=== PATIENT | male | born 1945 | race Two or more races ===

== ENCOUNTER 2020-11-09 20:20 | Inpatient (IN) | payer OTHER, MEDICAID ==
[~2020-11-09] VITALS: Ht 165.1 cm; Wt 59.4 kg
[2020-11-09] MEDS ORDERED: VANCOMYCIN 1GM/250ML 250 ML IV ONE (22:45)
[2020-11-09] MEDS ORDERED: PIPERACILLIN-TAZOB 3.375GM 100 ML IV ONE (22:45)
[2020-11-10 00:26] LABS: Basophils # (auto) 0.1 10 ^3/uL (0-0.2); Basophils % (auto) 0.9 % (0.0-2.0); Eosinophils # (auto) 0.1 10 ^3/uL (0-0.8); Eosinophils % (auto) 1.3 % (0.0-7.0); Hematocrit 33.7 % (41.0-53.0); Hemoglobin 11.5 g/dL (13.5-17.5); Lymphocytes % (auto) 18.1 % (10.0-50.0); Mean Corpuscular Hgb Conc. 34.1 g/dL (32.0-36.0); Mean Corpuscular Volume 84.9 fL (80.0-100.0); Monocytes # (auto) 0.9 10 ^3/uL (0-1.3); Neutrophils # (auto) 8.1 10 ^3/uL (1.6-8.6); Neutrophils % (auto) 71.7 % (37.0-80.0); Platelet Count (auto) 408 10^3/uL (140-450); Red Blood Cells 3.97 10^6/uL (4.5-5.90); Red Cell Distribution Width 13.2 % (11.8-14.3); White Blood Cell 11.3 10^3/uL (4.4-10.8)
[2020-11-10 00:47] LABS: Alanine Aminotransferase 23 U/L (16-61); Albumin 2.7 g/dL (3.4-5.0); Anion Gap 10 (5-15); Aspartate Aminotransferase 12 U/L (15-37); BUN/Creatinine Ratio 24.6; Blood Urea Nitrogen 15 mg/dL (7-18); Calcium 8.9 mg/dL (8.5-10.1); Carbon Dioxide 25 mmol/L (21-32); Chloride 97 mmol/L (98-107); GFR African American 166 mL/min; GFR Non-African American 137 mL/min; Glucose 174 mg/dL (74-106); Potassium 3.8 mmol/L (3.5-5.1); Sodium 132 mmol/L (136-145)
[2020-11-10 00:52] LABS: Alkaline Phosphatase 122 U/L (45-117); Bilirubin, Total 0.2 mg/dL (0.2-1.0); Total Protein 6.7 g/dL (6.4-8.2)
[2020-11-10 00:57] LABS: INR 0.98 (0.9-1.15); Partial Thromboplastin Time 28.5 sec (23.0-31.2)
[2020-11-10] MEDS ORDERED: MORPHINE SULF INJ 2 MG/ML SYRINGE 1ML IV PRN (02:15)
[2020-11-10] MEDS ORDERED: ONDANSETRON HCL 4 MG/2 ML VIAL IV PRN (02:15)
[2020-11-10] MEDS ORDERED: ACETAMINOPHEN 325 MG TAB PO PRN (02:15)
[2020-11-10] MEDS ORDERED: HYDROcodone-ACET 5/325MG TAB PO PRN (02:15)
[2020-11-10] MEDS ORDERED: DOCUSATE SOD 100 MG CAP PO PRN (02:15)
[2020-11-10] MEDS ORDERED: DEXTROSE (50%) 50ML SYRG IV PRN (02:15)
[2020-11-10] MEDS ORDERED: SODIUM CHLORIDE 0.9% 1,000 ML IV SCH (02:15)
[2020-11-10] MEDS ORDERED: NITROGLYCERIN 0.4 MG SL TAB SL PRN (02:15)
[2020-11-10] MEDS: hydrALAZINE HCL 20 MG/ML VL IV PRN ×2 (04:53→15:05)
[2020-11-10] MEDS ORDERED: LORazepam 2MG/ML-1ML VIAL IV ONE (06:00)
[2020-11-10] MEDS: PIPERACILLIN-TAZOB 3.375GM 100 ML IV SCH ×3 (06:00→21:52)
[2020-11-10 07:24] LABS: Basophils # (auto) 0.1 10 ^3/uL (0-0.2); Basophils % (auto) 0.9 % (0.0-2.0); Eosinophils # (auto) 0.1 10 ^3/uL (0-0.8); Eosinophils % (auto) 1.1 % (0.0-7.0); Hematocrit 35.2 % (41.0-53.0); Hemoglobin 12.1 g/dL (13.5-17.5); Lymphocytes # (auto) 2.3 10 ^3/uL (0.4-5.4); Lymphocytes % (auto) 19.7 % (10.0-50.0); Mean Corpuscular Hemoglobin 29.2 pg (28.0-32.0); Mean Corpuscular Hgb Conc. 34.5 g/dL (32.0-36.0); Mean Corpuscular Volume 84.7 fL (80.0-100.0); Monocytes # (auto) 1.2 10 ^3/uL (0-1.3); Neutrophils % (auto) 68.3 % (37.0-80.0); Platelet Count (auto) 444 10^3/uL (140-450); Red Blood Cells 4.15 10^6/uL (4.5-5.90); Red Cell Distribution Width 13.1 % (11.8-14.3); White Blood Cell 11.7 10^3/uL (4.4-10.8)
[2020-11-10 07:42] LABS: Albumin 2.9 g/dL (3.4-5.0); Potassium 3.7 mmol/L (3.5-5.1)
[2020-11-10 07:44] LABS: BUN/Creatinine Ratio 19.3
[2020-11-10] MEDS: ACCU-CHEK COMFORT CURVE STRIP VI SCH ×4 (07:55→21:53)
[2020-11-10] MEDS: InsuLIN REG 1unit/0.01ml Soln (100units/ml) SC SCH ×4 (08:00→20:53)
[2020-11-10 09:27] LABS: Bilirubin, Total 0.5 mg/dL (0.2-1.0); Total Protein 7.4 g/dL (6.4-8.2)
[2020-11-10] MEDS ORDERED: LORazepam 2MG/ML-1ML VIAL ONE (09:53)
[2020-11-10] MEDS: ASCORBIC ACID 500 MG TAB PO SCH ×2 (10:00→21:29)
[2020-11-10] MEDS ORDERED: LORazepam 2MG/ML-1ML VIAL IV PRN (10:00)
[2020-11-10] MEDS: MULTIPLE VITAMIN TAB PO SCH (10:00)
[2020-11-10] MEDS ORDERED: ENOXAPARIN SOD 40 MG/0.4 ML SYRINGE SC SCH (10:00)
[2020-11-10] MEDS: FAMOTIDINE (10MG/ML) 2ML VL IV SCH ×2 (10:24→21:52)
[2020-11-10 10:34] LABS: Urine Bacteria NONE SEEN /hpf (None Seen); Urine Blood Negative /uL (Negative); Urine Hyaline Cast FEW /lpf (0 - 2); Urine Specific Gravity 1.019 (1.001-1.035); Urine WBC 1 /hpf (0 - 3)
[2020-11-10 10:40] LABS: Lactic Acid w/Reflex 2.6 mmol/L (0.4-2.0)
[2020-11-10] MEDS: METOPROLOL TARTRATE 50 MG TAB PO SCH ×2 (11:08→21:29)
[2020-11-10] MEDS: amLODIPine BESYLATE 5 MG TAB PO SCH (11:09)
[2020-11-10] MEDS: SODIUM CHLORIDE 0.9% 1,000 ML IV SCH (14:54)
[2020-11-10] MEDS ORDERED: METOPROLOL TARTRATE 1MG/1ML-5ML VIAL IV PRN (16:00)
[2020-11-10] MEDS ORDERED: ACETAMINOPHEN 650 MG RECT SUPP PR ONE (17:15)
[2020-11-10 17:17] LABS: Amphetamine Screen, Urine NEGATIVE (NEGATIVE); Barbiturate Scree,Urine NEGATIVE (NEGATIVE); Benzodiazephine Screen, Urine NEGATIVE (NEGATIVE); Cannabinoid Screen, Urine NEGATIVE (NEGATIVE); Cocaine Screen, Urine NEGATIVE (NEGATIVE); Opiate Scree,Urine NEGATIVE (NEGATIVE); Phencyclidine Screen, Urine NEGATIVE (NEGATIVE)
[2020-11-10 20:05] VITALS: BP 149/84
[2020-11-10] MEDS: ATORVASTATIN 20 MG TAB PO SCH (21:28)
[2020-11-10 22:00] VITALS: BP 149/84
[2020-11-10] MEDS ORDERED: ENOXAPARIN SOD 30 MG/0.3 ML SYRINGE SC SCH (22:00)
[2020-11-10] MEDS ORDERED: METO25TA5 PO (23:25)
[2020-11-10] MEDS ORDERED: LISI2.5T47 PO (23:25)
[2020-11-10] MEDS ORDERED: METF-370 PO (23:25)
[2020-11-10] MEDS ORDERED: GABA-339 PO (23:25)
[2020-11-10] MEDS ORDERED: CLOT-6 EX (23:25)
[2020-11-10] MEDS ORDERED: INSLANTI SC (23:25)
[2020-11-10] MEDS ORDERED: PIO30T PO (23:25)
[2020-11-11 05:00] VITALS: BP 143/78
[2020-11-11] MEDS: PIPERACILLIN-TAZOB 3.375GM 100 ML IV SCH ×3 (05:52→22:06)
[2020-11-11] MEDS: ACCU-CHEK COMFORT CURVE STRIP VI SCH ×4 (05:53→22:08)
[2020-11-11] MEDS: InsuLIN REG 1unit/0.01ml Soln (100units/ml) SC SCH ×4 (05:54→22:00)
[2020-11-11 06:55] LABS: Basophils # (auto) 0.1 10 ^3/uL (0-0.2); Basophils % (auto) 1.1 % (0.0-2.0); Eosinophils # (auto) 0.1 10 ^3/uL (0-0.8); Eosinophils % (auto) 1.3 % (0.0-7.0); Hematocrit 34.5 % (41.0-53.0); Hemoglobin 11.7 g/dL (13.5-17.5); Lymphocytes # (auto) 1.9 10 ^3/uL (0.4-5.4); Lymphocytes % (auto) 16.2 % (10.0-50.0); Mean Corpuscular Hemoglobin 28.9 pg (28.0-32.0); Mean Corpuscular Volume 84.9 fL (80.0-100.0); Monocytes # (auto) 0.9 10 ^3/uL (0-1.3); Monocytes % (auto) 7.7 % (0.0-12.0); Neutrophils # (auto) 8.5 10 ^3/uL (1.6-8.6); Neutrophils % (auto) 73.7 % (37.0-80.0); Platelet Count (auto) 439 10^3/uL (140-450); Red Blood Cells 4.06 10^6/uL (4.5-5.90); Red Cell Distribution Width 13.3 % (11.8-14.3); White Blood Cell 11.5 10^3/uL (4.4-10.8)
[2020-11-11 08:18] LABS: Magnesium 1.6 mg/dL (1.6-2.6); Potassium 3.8 mmol/L (3.5-5.1)
[2020-11-11 08:25] LABS: Albumin 2.8 g/dL (3.4-5.0); BUN/Creatinine Ratio 18.9; Bilirubin, Total 0.5 mg/dL (0.2-1.0); Calcium 9.2 mg/dL (8.5-10.1); Total Protein 7.2 g/dL (6.4-8.2)
[2020-11-11 09:00] VITALS: BP 156/71
[2020-11-11] MEDS: SODIUM CHLORIDE 0.9% 1,000 ML IV SCH (10:20)
[2020-11-11] MEDS ORDERED: MAGNESIUM SULFATE 1GM/100ML 100 ML IV ONE (11:00)
[2020-11-11] MEDS: FAMOTIDINE (10MG/ML) 2ML VL IV SCH ×2 (11:30→22:06)
[2020-11-11] MEDS: amLODIPine BESYLATE 5 MG TAB PO SCH (11:31)
[2020-11-11] MEDS: MULTIPLE VITAMIN TAB PO SCH (11:31)
[2020-11-11] MEDS: METOPROLOL TARTRATE 50 MG TAB PO SCH ×2 (11:31→22:07)
[2020-11-11] MEDS: CLOPIDOGREL BISULFATE 75 MG TAB PO SCH (11:32)
[2020-11-11] MEDS: ASCORBIC ACID 500 MG TAB PO SCH ×2 (11:32→22:07)
[2020-11-11 13:00] VITALS: BP 159/77
[2020-11-11 17:22] VITALS: BP 144/80
[2020-11-11] MEDS ORDERED: LORazepam 2MG/ML-1ML VIAL IV PRN (19:15)
[2020-11-11 22:00] VITALS: BP 125/62
[2020-11-11] MEDS: ATORVASTATIN 20 MG TAB PO SCH (22:07)
[2020-11-11] MEDS: ENOXAPARIN SOD 60 MG/0.6 ML SYRINGE SC SCH (22:08)
[2020-11-12 05:00] VITALS: BP 150/71
[2020-11-12] MEDS: SODIUM CHLORIDE 0.9% 1,000 ML IV SCH (05:00)
[2020-11-12] MEDS: PIPERACILLIN-TAZOB 3.375GM 100 ML IV SCH ×3 (06:22→22:45)
[2020-11-12] MEDS: ACCU-CHEK COMFORT CURVE STRIP VI SCH ×4 (06:22→22:45)
[2020-11-12] MEDS: InsuLIN REG 1unit/0.01ml Soln (100units/ml) SC SCH ×4 (06:31→22:00)
[2020-11-12 07:01] LABS: Hematocrit 33.7 % (41.0-53.0); Hemoglobin 11.7 g/dL (13.5-17.5)
[2020-11-12 07:12] LABS: INR 1.06 (0.9-1.15)
[2020-11-12 07:24] LABS: Magnesium 1.8 mg/dL (1.6-2.6); Potassium 3.7 mmol/L (3.5-5.1)
[2020-11-12 08:50] VITALS: BP 128/59
[2020-11-12 08:55] LABS: Folate (Folic Acid) 15.5 ng/mL (5.38-24)
[2020-11-12] MEDS: ASCORBIC ACID 500 MG TAB PO SCH ×2 (10:00→22:45)
[2020-11-12] MEDS ORDERED: ENOXAPARIN SOD 30 MG/0.3 ML SYRINGE SC SCH (10:00)
[2020-11-12] MEDS: MULTIPLE VITAMIN TAB PO SCH (10:00)
[2020-11-12] MEDS: ENOXAPARIN SOD 60 MG/0.6 ML SYRINGE SC SCH (10:00)
[2020-11-12] MEDS: FAMOTIDINE (10MG/ML) 2ML VL IV SCH ×2 (10:00→22:43)
[2020-11-12] MEDS: amLODIPine BESYLATE 5 MG TAB PO SCH (10:49)
[2020-11-12] MEDS: CLOPIDOGREL BISULFATE 75 MG TAB PO SCH (10:49)
[2020-11-12] MEDS: METOPROLOL TARTRATE 50 MG TAB PO SCH ×2 (10:49→15:26)
[2020-11-12] MEDS ORDERED: MAGNESIUM SULFATE 1GM/100ML 100 ML IV ONE (12:15)
[2020-11-12] MEDS ORDERED: LIDOCAINE 2%HCL (LOCAL ANESTH.) INJ 20ML MDV ONE (12:25)
[2020-11-12] MEDS ORDERED: IODIXANOL 320MG/ML 100ML BTL IV ONE ×2 (12:25→14:42)
[2020-11-12] MEDS ORDERED: diphenhdrAMINE HCL 50 MG/1 ML VL ONE (12:40)
[2020-11-12] MEDS ORDERED: ANGIOMAX 250 MG VIAL IV ONE ×3 (12:40→13:59)
[2020-11-12] MEDS ORDERED: SODIUM CHL 0.9% 50 ML ONE ×2 (12:41→13:58)
[2020-11-12] MEDS ORDERED: fentaNYL CITRATE 100 MCG/2 ML VL ONE (12:41)
[2020-11-12] MEDS ORDERED: MIDAZOLAM HCL 1MG/1ML-2 ML VIAL ONE (12:41)
[2020-11-12] MEDS ORDERED: HYDROmorphone HCL 2 MG/ML VL ONE (13:09)
[2020-11-12] MEDS ORDERED: METOPROLOL TARTRATE 1MG/1ML-5ML VIAL IV ONE (13:19)
[2020-11-12 17:52] VITALS: BP 139/65
[2020-11-12] MEDS ORDERED: CYANOCOBALAMIN (B-12) 1000 MCG/1 ML VIAL IM ONE (20:30)
[2020-11-12 21:52] VITALS: BP 140/69
[2020-11-12] MEDS: ATORVASTATIN 20 MG TAB PO SCH (22:45)
[2020-11-13] MEDS: SODIUM CHLORIDE 0.9% 1,000 ML IV SCH ×2 (01:00→21:36)
[2020-11-13 05:12] VITALS: BP_SYST 135; BP_SYST 157; BP_DIAS 57; BP_DIAS 63
[2020-11-13] MEDS: PIPERACILLIN-TAZOB 3.375GM 100 ML IV SCH ×3 (06:08→21:38)
[2020-11-13] MEDS: ACCU-CHEK COMFORT CURVE STRIP VI SCH ×4 (06:43→21:38)
[2020-11-13] MEDS: InsuLIN REG 1unit/0.01ml Soln (100units/ml) SC SCH ×4 (06:45→21:39)
[2020-11-13 06:47] LABS: Basophils # (auto) 0.1 10 ^3/uL (0-0.2); Basophils % (auto) 0.8 % (0.0-2.0); Eosinophils # (auto) 0.1 10 ^3/uL (0-0.8); Eosinophils % (auto) 0.9 % (0.0-7.0); Hematocrit 33.4 % (41.0-53.0); Hemoglobin 11.6 g/dL (13.5-17.5); Lymphocytes # (auto) 1.2 10 ^3/uL (0.4-5.4); Lymphocytes % (auto) 10.4 % (10.0-50.0); Mean Corpuscular Hemoglobin 29.5 pg (28.0-32.0); Mean Corpuscular Hgb Conc. 34.6 g/dL (32.0-36.0); Mean Corpuscular Volume 85.4 fL (80.0-100.0); Monocytes # (auto) 0.9 10 ^3/uL (0-1.3); Monocytes % (auto) 7.4 % (0.0-12.0); Neutrophils # (auto) 9.6 10 ^3/uL (1.6-8.6); Neutrophils % (auto) 80.5 % (37.0-80.0); Platelet Count (auto) 391 10^3/uL (140-450); Red Blood Cells 3.91 10^6/uL (4.5-5.90); Red Cell Distribution Width 13.2 % (11.8-14.3); White Blood Cell 11.9 10^3/uL (4.4-10.8)
[2020-11-13 06:53] LABS: Calcium 8.7 mg/dL (8.5-10.1); Magnesium 2.1 mg/dL (1.6-2.6); Potassium 3.6 mmol/L (3.5-5.1)
[2020-11-13 08:48] VITALS: BP 143/73
[2020-11-13] MEDS: FAMOTIDINE (10MG/ML) 2ML VL IV SCH ×2 (09:40→21:37)
[2020-11-13] MEDS: MULTIPLE VITAMIN TAB PO SCH (09:41)
[2020-11-13] MEDS: METOPROLOL TARTRATE 50 MG TAB PO SCH ×2 (09:41→21:37)
[2020-11-13] MEDS: CLOPIDOGREL BISULFATE 75 MG TAB PO SCH (09:41)
[2020-11-13] MEDS: CYANOCOBALAMIN 500 MCG TAB PO SCH (09:42)
[2020-11-13] MEDS: amLODIPine BESYLATE 5 MG TAB PO SCH (09:42)
[2020-11-13] MEDS: ASCORBIC ACID 500 MG TAB PO SCH ×2 (09:43→21:38)
[2020-11-13] MEDS: ASPirin-EC 81 mg tab PO SCH (12:09)
[2020-11-13 13:00] VITALS: BP 141/86
[2020-11-13 16:52] VITALS: BP 161/78
[2020-11-13] MEDS: hydrALAZINE HCL 20 MG/ML VL IV PRN ×2 (18:02→21:37)
[2020-11-13 20:00] VITALS: BP 162/78
[2020-11-13] MEDS: ATORVASTATIN 20 MG TAB PO SCH (21:38)
[2020-11-13 22:00] VITALS: BP 135/77
[2020-11-14 04:44] VITALS: BP 150/67
[2020-11-14] MEDS: InsuLIN REG 1unit/0.01ml Soln (100units/ml) SC SCH ×4 (05:31→22:00)
[2020-11-14] MEDS: PIPERACILLIN-TAZOB 3.375GM 100 ML IV SCH ×3 (05:31→22:50)
[2020-11-14] MEDS: ACCU-CHEK COMFORT CURVE STRIP VI SCH ×4 (05:31→22:35)
[2020-11-14 06:46] LABS: Basophils # (auto) 0.1 10 ^3/uL (0-0.2); Basophils % (auto) 0.8 % (0.0-2.0); Eosinophils # (auto) 0.1 10 ^3/uL (0-0.8); Eosinophils % (auto) 1.1 % (0.0-7.0); Hematocrit 33.4 % (41.0-53.0); Hemoglobin 11.5 g/dL (13.5-17.5); Lymphocytes # (auto) 1.9 10 ^3/uL (0.4-5.4); Lymphocytes % (auto) 15.7 % (10.0-50.0); Mean Corpuscular Hemoglobin 29.5 pg (28.0-32.0); Mean Corpuscular Hgb Conc. 34.4 g/dL (32.0-36.0); Mean Corpuscular Volume 85.6 fL (80.0-100.0); Monocytes # (auto) 1.4 10 ^3/uL (0-1.3); Monocytes % (auto) 11.3 % (0.0-12.0); Neutrophils # (auto) 8.6 10 ^3/uL (1.6-8.6); Neutrophils % (auto) 71.1 % (37.0-80.0); Platelet Count (auto) 407 10^3/uL (140-450); Red Cell Distribution Width 13.2 % (11.8-14.3); White Blood Cell 12.1 10^3/uL (4.4-10.8)
[2020-11-14 06:56] LABS: Potassium 3.3 mmol/L (3.5-5.1)
[2020-11-14 07:01] LABS: Calcium 8.5 mg/dL (8.5-10.1)
[2020-11-14 07:27] LABS: INR 1.06 (0.9-1.15); Partial Thromboplastin Time 30.6 sec (23.0-31.2)
[2020-11-14] MEDS: ASPirin-EC 81 mg tab PO SCH (09:11)
[2020-11-14] MEDS: CLOPIDOGREL BISULFATE 75 MG TAB PO SCH (09:12)
[2020-11-14] MEDS: METOPROLOL TARTRATE 50 MG TAB PO SCH ×2 (09:12→22:50)
[2020-11-14] MEDS: amLODIPine BESYLATE 5 MG TAB PO SCH (09:12)
[2020-11-14 09:20] VITALS: BP 144/58
[2020-11-14] MEDS ORDERED: POTASSIUM CHL 20 Meq TABLET PO ONE (09:45)
[2020-11-14] MEDS: CYANOCOBALAMIN 500 MCG TAB PO SCH (10:00)
[2020-11-14] MEDS: MULTIPLE VITAMIN TAB PO SCH (10:00)
[2020-11-14] MEDS: FAMOTIDINE (10MG/ML) 2ML VL IV SCH ×2 (10:00→22:50)
[2020-11-14] MEDS: ASCORBIC ACID 500 MG TAB PO SCH ×2 (10:00→22:50)
[2020-11-14] MEDS ORDERED: LIDOCAINE 2%HCL (LOCAL ANESTH.) INJ 20ML MDV ONE (11:33)
[2020-11-14] MEDS ORDERED: ANGIOMAX 250 MG VIAL IV ONE ×2 (11:38→13:20)
[2020-11-14] MEDS ORDERED: MIDAZOLAM HCL 1MG/1ML-2 ML VIAL ONE (11:38)
[2020-11-14] MEDS ORDERED: fentaNYL CITRATE 100 MCG/2 ML VL ONE (11:38)
[2020-11-14] MEDS ORDERED: SODIUM CHL 0.9% 50 ML ONE ×2 (11:38→13:20)
[2020-11-14] MEDS ORDERED: METOPROLOL TARTRATE 1MG/1ML-5ML VIAL IV ONE (13:07)
[2020-11-14] MEDS ORDERED: hydrALAZINE HCL 20 MG/ML VL ONE (13:30)
[2020-11-14] MEDS ORDERED: IODIXANOL 320MG/ML 100ML BTL IV ONE (13:41)
[2020-11-14 16:32] VITALS: BP 148/62
[2020-11-14] MEDS: SODIUM CHLORIDE 0.9% 1,000 ML IV SCH (17:00)
[2020-11-14] MEDS: ATORVASTATIN 20 MG TAB PO SCH (22:50)
[2020-11-15] MEDS: hydrALAZINE HCL 20 MG/ML VL IV PRN (03:05)
[2020-11-15] MEDS: PIPERACILLIN-TAZOB 3.375GM 100 ML IV SCH ×2 (05:51→13:50)
[2020-11-15] MEDS: ACCU-CHEK COMFORT CURVE STRIP VI SCH ×3 (06:53→17:04)
[2020-11-15] MEDS: InsuLIN REG 1unit/0.01ml Soln (100units/ml) SC SCH ×3 (06:53→17:05)
[2020-11-15 07:41] LABS: Basophils # (auto) 0.1 10 ^3/uL (0-0.2); Basophils % (auto) 0.8 % (0.0-2.0); Eosinophils # (auto) 0.1 10 ^3/uL (0-0.8); Eosinophils % (auto) 0.5 % (0.0-7.0); Hemoglobin 10.5 g/dL (13.5-17.5); Lymphocytes # (auto) 1.7 10 ^3/uL (0.4-5.4); Lymphocytes % (auto) 11.6 % (10.0-50.0); Mean Corpuscular Hemoglobin 29.7 pg (28.0-32.0); Mean Corpuscular Hgb Conc. 34.8 g/dL (32.0-36.0); Mean Corpuscular Volume 85.4 fL (80.0-100.0); Monocytes # (auto) 1.3 10 ^3/uL (0-1.3); Neutrophils # (auto) 11.3 10 ^3/uL (1.6-8.6); Neutrophils % (auto) 78.1 % (37.0-80.0); Platelet Count (auto) 365 10^3/uL (140-450); Red Blood Cells 3.52 10^6/uL (4.5-5.90); Red Cell Distribution Width 13.3 % (11.8-14.3); White Blood Cell 14.4 10^3/uL (4.4-10.8)
[2020-11-15] MEDS ORDERED: PROPOFOL 10 MG/ML 20 ML IV ONE (07:44)
[2020-11-15] MEDS ORDERED: MIDAZOLAM HCL 1MG/1ML-2 ML VIAL ONE (07:44)
[2020-11-15] MEDS ORDERED: fentaNYL CITRATE 100 MCG/2 ML VL ONE (07:44)
[2020-11-15] MEDS ORDERED: ONDANSETRON HCL 4 MG/2 ML VIAL ONE (07:44)
[2020-11-15] MEDS ORDERED: SODIUM CHLORIDE LOCK 10 ML ONE (07:44)
[2020-11-15] MEDS ORDERED: ceFAZolin 1GM VL ONE (07:50)
[2020-11-15] MEDS ORDERED: NEOMYCIN-BACITRACIN-POLYM 15GM TOP OINT TOP ONE (07:50)
[2020-11-15 07:53] LABS: Calcium 8.6 mg/dL (8.5-10.1); Potassium 3.7 mmol/L (3.5-5.1)
[2020-11-15 07:56] LABS: BUN/Creatinine Ratio 30.6
[2020-11-15] MEDS ORDERED: ceFAZolin 1GM/50ML 50 ML IV ONE (08:01)
[2020-11-15] MEDS ORDERED: KETAMINE HCL 10 ML ONE (08:48)
[2020-11-15 09:00] VITALS: BP 108/67
[2020-11-15] MEDS: CLOPIDOGREL BISULFATE 75 MG TAB PO SCH (10:00)
[2020-11-15] MEDS: ASPirin-EC 81 mg tab PO SCH (10:00)
[2020-11-15] MEDS: MULTIPLE VITAMIN TAB PO SCH (10:00)
[2020-11-15] MEDS: FAMOTIDINE (10MG/ML) 2ML VL IV SCH (10:00)
[2020-11-15] MEDS: CYANOCOBALAMIN 500 MCG TAB PO SCH (10:00)
[2020-11-15] MEDS: ASCORBIC ACID 500 MG TAB PO SCH (10:00)
[2020-11-15] MEDS ORDERED: MORPHINE SULF INJ 2 MG/ML SYRINGE 1ML IV PRN (10:15)
[2020-11-15] MEDS: METOPROLOL TARTRATE 50 MG TAB PO SCH (11:34)
[2020-11-15] MEDS: amLODIPine BESYLATE 5 MG TAB PO SCH (11:35)
[2020-11-15 13:00] VITALS: BP_SYST 107; BP_SYST 88; BP_DIAS 48; BP_DIAS 52
[2020-11-15] MEDS: SODIUM CHLORIDE 0.9% 1,000 ML IV SCH (13:36)
[2020-11-15] MEDS ORDERED: LEVO500T31 PO (14:49)
[2020-11-15] MEDS ORDERED: MULTTAB99 PO (14:49)
[2020-11-15] MEDS ORDERED: PANT40TA2 PO (14:49)
[2020-11-15] MEDS ORDERED: SACC250C PO (14:49)
[2020-11-15] MEDS ORDERED: CYAN500T3 PO (14:49)
[2020-11-15] MEDS ORDERED: ATOR20TA50 PO (14:49)
[2020-11-15] MEDS ORDERED: CLOP75TA28 PO (14:49)
[2020-11-15] MEDS ORDERED: ASPI-543 PO (14:49)
[2020-11-15] MEDS ORDERED: AML5T PO (14:49)
[2020-11-15 17:25] VITALS: BP 157/79
[2020-11-15 18:07] VITALS: BP_SYST 105; BP_SYST 157; BP_DIAS 78; BP_DIAS 79
[2020-11-15] MEDS ORDERED: INSULIN LANTUS (GLARGINE) 1 /0.01ml (100units/ml) SC SCH (22:00)
[2020-11-16] MEDS ORDERED: levoFLOXacin 500 MG TAB PO SCH (10:00)
[2020-11-16] MEDS ORDERED: PANTOPRAZOLE 40 MG TAB PO SCH (10:00)
== END 2020-11-15 21:40 | DRG 239 ==
LOC: ER 20:20 → TELE 11-10 02:21 → TELE-CENTR 11-10 19:59
PROVIDERS: ADMIT Nurse Practitioner Family; ATTEND Internal Medicine
PROC: 047L34Z Dilation of Left Femoral Artery with Drug-eluting Intraluminal Device, Percutaneous Approach (ICD-10-PCS; principal; 2020-11-12)
PROC: 047Q3ZZ Dilation of Left Anterior Tibial Artery, Percutaneous Approach (ICD-10-PCS; 2020-11-12)
PROC: 047D3EZ Dilation of Left Common Iliac Artery with Two Intraluminal Devices, Percutaneous Approach (ICD-10-PCS; 2020-11-12)
PROC: 047 Lower Arteries, Dilation (ICD-10-PCS; 2020-11-12)
PROC: 047P3ZZ Dilation of Right Anterior Tibial Artery, Percutaneous Approach (ICD-10-PCS; 2020-11-12)
PROC: 047C3DZ Dilation of Right Common Iliac Artery with Intraluminal Device, Percutaneous Approach (ICD-10-PCS; 2020-11-14)
PROC: B41G1ZZ Fluoroscopy of Left Lower Extremity Arteries using Low Osmolar Contrast (ICD-10-PCS; 2020-11-14)
PROC: B41F1ZZ Fluoroscopy of Right Lower Extremity Arteries using Low Osmolar Contrast (ICD-10-PCS; 2020-11-14)
PROC: 047K3EZ Dilation of Right Femoral Artery with Two Intraluminal Devices, Percutaneous Approach (ICD-10-PCS; 2020-11-14)
PROC: B44FZZ3 Ultrasonography of Right Lower Extremity Arteries, Intravascular (ICD-10-PCS; 2020-11-14)
PROC: 0Y6N0ZB Detachment at Left Foot, Partial 2nd Ray, Open Approach (ICD-10-PCS; 2020-11-15)
PROC: 0Y6N0ZC Detachment at Left Foot, Partial 3rd Ray, Open Approach (ICD-10-PCS; 2020-11-15)
PROC: 0JXR0ZZ Transfer Left Foot Subcutaneous Tissue and Fascia, Open Approach (ICD-10-PCS; 2020-11-15)
DX: E11.52 Type 2 diabetes mellitus with diabetic peripheral angiopathy with gangrene (principal); G93.41 Metabolic encephalopathy; I50.31 Acute diastolic (congestive) heart failure; I96 Gangrene, not elsewhere classified; E87.1 Hypo-osmolality and hyponatremia; G91.2 (Idiopathic) normal pressure hydrocephalus; R65.10 Systemic inflammatory response syndrome (SIRS) of non-infectious origin without acute organ dysfunction; E11.65 Type 2 diabetes mellitus with hyperglycemia; I70.202 Unspecified atherosclerosis of native arteries of extremities, left leg; F03.90 Unspecified dementia, unspecified severity, without behavioral disturbance, psychotic disturbance, mood disturbance, and anxiety; E87.6 Hypokalemia; I11.0 Hypertensive heart disease with heart failure; Z20.822 Contact with and (suspected) exposure to COVID-19; D64.9 Anemia, unspecified
CPT/HCPCS: 36415; 51702; 70450; 71045; 73700; 80048; 80053; 80061; 80307; 81001; 82306; 82550; 82607; 82746; 82962; 83036; 83605; 83735; 83880; 84132; 84443; 84484; 85014; 85018; 85025; 85379; 85610; 85730; 87040; 87081; 87426; 93005; 93306; 95819; 96365; 96366; 96367; 99152; 99153; A4565; C1725; C1769; G0378; J0690; J1815; J2250; J2405; J2543; J2704; J3490; Q9967